=== PATIENT | male | born 1960 | race Caucasian/White ===

== ENCOUNTER 2018-07-11 12:23 | Day surgery (SDC) | payer OTHER ==
[2018-07-11] MEDS ORDERED: LIDOCAINE 2% (SDV) 5 ML INJ (14:18)
[2018-07-11] MEDS ORDERED: PROPOFOL 20 ML ×2 (14:18)
== END 2018-07-11 16:25 | disposition home or self-care (01) ==
LOC: GIL 12:23
DX: K92.1 Melena (principal); I85.00 Esophageal varices without bleeding
CPT/HCPCS: 43239; 88305